=== PATIENT | male | born 1945 ===

== ENCOUNTER 2016-11-08 12:55 | Emergency (ER) | payer OTHER ==
--- NOTE | 2016-11-08 13:40 | DIAGNOSTIC IMAGING REPORT ---
PROCEDURE: CT HEAD WITHOUT CONTRAST INDICATION: WEAKNESS TECHNIQUE: Axial CT images were acquired through the head. Coronal and sagittal reformations were created. COMPARISON: Head CT 11/27/2015 FINDINGS: Sulci and ventricular system are normal. Mild white matter chronic ischemic changes. No evidence of acute intracranial process. Visualized mastoids and sinuses are clear. IMPRESSION: 1. No acute intracranial abnormality 2. Mild white matter chronic ischemic changes 3. Findings discussed with Dr. Alvarez at 01:18 p.m., [place] Standard Time All CT scans at this facility use dose modulation, iterative reconstruction, and/or weight-based dosing when appropriate to reduce radiation dose to as low as reasonably achievable.
--- NOTE | 2016-11-08 14:45 | ED NURSING NOTES ---
Clinical Report - Nurses [facility] [address] [place] [address] 11/08/2016 12:58 Patient: FRANTZ DUNN SR TRIAGE Triage time 1258. Acuity: LEVEL 2. Chief Complaint: (pt in with slurred speech and "a little wobbling"). ( FSBS- 70). LEXI COMA SCORE: Stanford Coma Scale: 14- eyes open spontaneously (4); best verbal response- disoriented (4); best motor response- obeys commands (6). --13:08 Jeanne Verdin R.N. 13:00 11/08/16. BP: 163/77. HR: 64. RR: 18. O2 saturation: 98% on room air. Temp: 98.4 F. Pain level now: 10. Additional comments: 3- right rib pain . --13:08 Jeanne Verdin R.N. Weight: 59.8 kg stated. Height/Length: 68 inches Per Patient. BMI: 20.1. --13:07 Jeanne Verdin R.N. Medications Alfuzosin HCl ER Oral. --14:55 Jeanne Verdin R.N. Allergies None. --14:55 Jeanne Verdin R.N. History Arrived by private vehicle. Historian: patient. Accompanied by spouse. Primary physician (Freddy). This started 2 weeks. ( no facial droop noted, but pt also has poor memory that states is new). --13:08 Jeanne Verdin R.N. ( has had several recent falls - 2 weeks ago fell to ground, frequently falls into furniture, or against saavedra). SOCIAL HX: Light tobacco smoker (cigarette)- less than 1/2 a pack per day. Alcohol use. (dry since ?2015 (was heavy drinker before that)). No drug use. --13:10 Jeanne Verdin R.N. PROBLEMS: Alcohol Intoxication. Syncope. Lung Disease. Prostate Cancer. --13:07 Jeanne Verdin R.N. ADDITIONAL SURGERIES: Prostatic seed implants. --13:07 Jeanne Verdin R.N. Interventions ID band on patient. To treatment room. --13:08 Jeanne Verdin R.N. PHYSICAL ASSESSMENT 12:58. Ambulatory to room. Patient gowned. GENERAL / NEURO / PSYCH: Awake. Alert. Appears in no acute distress. Lexi Coma Scale: 14- eyes open spontaneously (4); best verbal response- disoriented (4); best motor response- obeys commands (6). Slurred speech. HEENT: ( steam fitter helper equal and strong, no facial droop noted). RESPIRATORY: Respirations not labored. CVS: Capillary refill less than 2 seconds. SKIN: Skin is warm and dry. --13:13 Jeanne Verdin R.N. NURSING PROGRESS NOTES 12:58. Monitoring of patient in place. Patient gowned. Head of bed elevated. Reassurance given. Patient identifiers checked. Call light placed in reach. Side rails up. Bed placed in lowest position. Patient ready for evaluation- chart flagged. --13:08 Jeanne Verdin R.N. 13:08 11/08/2016 Started bag #1 1000 mL IV Fluids IV NS (Saline); at 1000 mL/hr over 1 hour(s) via site #1 via IV pump. IV patency established. IV site checked: no pain, redness, or swelling. IV flushed thoroughly pre- and post-medication administration. --14:26 Jeanne Verdin R.N. 13:08 11/08/16. Patient transported to CT by stretcher with tech. --13:08 Jeanne Verdin R.N. 13:13 11/08/16. Patient returned from CT by stretcher with tech. --13:14 Jeanne Verdin R.N. 13:13. LEXI COMA SCORE: Stanford Coma Scale: 15- eyes open spontaneously (4); best verbal response- oriented x 4 (5); best motor response- obeys commands (6). (correct answers now, speech seems clearer now). --13:15 Jeanne Verdin R.N. 13:16 11/08/2016 Site #1 started via IV in the right antecubital space with an 20g angiocath, with aseptic technique and good blood return; one attempt. Blood drawn: rainbow set. Labeled in the presence of the patient and sent to the lab. Saline lock flushed with 10 mL saline (done by WING Miller). --13:16 Jeanne Verdin R.N. Finger stick glucose: 70 mg/dL 13:08; performed by tech; result shown to the RN. --13:38 Kristine Nguyen EKG time: (13:23). EKG was performed by a tech and shown to the ED physician. --13:39 Kristine Nguyen 13:30 11/08/16. BP: 125/73. HR: 70. RR: 18. O2 saturation: 98% on room air. Temp: deferred. Pain level now: 3/10. Additional comments: resting quietly, watching t.v. at bedside. pt declined additional blanket . --14:23 Jeanne Verdin R.N. 14:00 11/08/16. BP: 138/66. HR: 61. RR: 16. O2 saturation: 98%. Temp: deferred. Pain level now: 3/10. Additional comments: pt declined fluids. in no distress. --14:24 Jeanne Verdin R.N. 14:00. LEXI COMA SCORE: Stanford Coma Scale: 15- eyes open spontaneously (4); best verbal response- oriented x 4 (5); best motor response- obeys commands (6). --14:24 Jeanne Verdin R.N. 14:10. Patient ID band checked for patient name and birthdate: patient confirmed. Clean catch urine collected with return of yellow-colored clear urine; sample sent to lab for urinalysis and culture. Specimen labeled in the presence of the patient (pt voided 300cc in urinal at bedside. UA sent to lab). --14:25 Jeanne Verdin R.N. 14:20 11/08/2016 IV Saline Lock Drip IV Discontinued: bag #1 infused. Total amount infused: 1000 mL (IV converted to saline lock.). --14:27 Jeanne Verdin R.N. 14:20 11/08/2016 IV Fluids IV NS Discontinued: bag #1 STOPPED upon discharge. Total amount infused: 1000 mL. --14:54 Jeanne Verdin R.N. 14:44 11/08/2016 Site #1 removed upon discharge. Bandaid applied. --14:54 Jeanne Verdin R.N. DISPOSITION / DISCHARGE 14:50. Condition at departure: unchanged and stable. No learning barriers present. Spouse verbalized understanding. Written instructions provided in Estonian. The patient was discharged home and accompanied by spouse. He left the Emergency Department ambulatory and via private vehicle. Spouse driving. LEXI COMA SCORE: Lexi Coma Scale: 15- eyes open spontaneously (4); best verbal response- oriented x 4 (5); best motor response- obeys commands (6). --14:53 Jeanne Verdin R.N. 14:50 11/08/16. BP: 130/73. HR: 61. RR: 16. O2 saturation: 98%. Temp: deferred. Pain level now: 08/09. --14:53 Jeanne Verdin R.N. Locked/Released at 11/08/2016 14:56 by Jeanne Verdin R.N.
--- NOTE | 2016-11-08 14:45 | ED ORDER SUMMARY ---
..... Patient: FRANTZ DUNN SR OrderSheet [facility] VisitID: [id number] [address] [place] [address] 71y, M Registration Date/Time: 11/08/2016 ORDER SHEET Weight: 59.8 kg (stated) Allergies: None GENERAL ORDERS: CT Head wo Cont Urgent (13:11/08/2016 HBivens A.R.N.P.) (Ack 13:11 IJurca ER Tech1) (13:16 DDean R.N.) Glass Wool Blanket Machine Feeder (Continuous) (13:11/08/2016 HBivens A.R.N.P.) (Ack 13:11 IJurca ER Tech1) (13:14 DDean R.N.) CBC w Diff Urgent (13:11/08/2016 HBivens A.R.N.P.) (Ack 13:11 IJurca ER Tech1) (13:16 DDean R.N.) CMP Urgent (13:11/08/2016 HBivens A.R.N.P.) (Ack 13:11 IJurca ER Tech1) (13:16 DDean R.N.) CPK Urgent (13:11/08/2016 HBivens A.R.N.P.) (Ack 13:11 IJurca ER Tech1) (13:16 DDean R.N.) Troponin-I Urgent (13:11/08/2016 HBivens A.R.N.P.) (Ack 13:11 IJurca ER Tech1) (13:16 DDean R.N.) PCT (Procalcitonin) Urgent (13:11/08/2016 HBivens A.R.N.P.) (Ack 13:11 IJurca ER Tech1) (13:16 DDean R.N.) CRP Urgent (13:11/08/2016 HBivens A.R.N.P.) (Ack 13:11 IJurca ER Tech1) (13:16 DDean R.N.) UA-Culture if indicated Urgent (13:11/08/2016 HBivens A.R.N.P.) (Ack 13:11 IJurca ER Tech1) (14:25 DDean R.N.) Urine Drug Screen Urgent (13:08 11/08/2016 HBivens A.R.N.P.) (Ack 13:11 IJurca ER Tech1) (14:25 DDean R.N.) TSH Urgent (13:08 11/08/2016 HBivens A.R.N.P.) (Ack 13:11 IJurca ER Tech1) (13:16 DDean R.N.) EKG - ER Stat (13:08 11/08/2016 HBivens A.R.N.P.) (Ack 13:10 RKaruga) (13:38 RKaruga) Ethyl Alcohol Urgent (13:28 11/08/2016 HBivens A.R.N.P.) (Ack 13:30 IJurca ER Tech1) (14:55 DDean R.N.) MEDICATION ORDERS: IV FLUIDS: IV Saline Lock (13:08 11/08/2016 HBivens A.R.N.P.) (Ack 13:14 DDean R.N.) (13:17 DDean R.N.) IV NS : initial bolus 1000 mL (1000 mL/hr), then none - (NOW) (13:08 11/08/2016 HBivens A.R.N.P.) (Ack 13:14 DDean R.N.) (14:26 DDean R.N.) ORDER SHEET NOTES: [Electronically signed by Jeanne Verdin R.N. (14:56 11/08/2016)] [Electronically signed by Pema Alvarez A.R.N.P. (18:55 11/08/2016)] [Electronically locked/signed by Jeanne Verdin R.N. (14:56 11/08/2016)]
--- NOTE | 2016-11-08 14:45 | ED CLINICAL REPORT ---
Clinical Report - Physicians/Mid Levels [facility] [address] [place] [address] 11/08/2016 12:58 Patient: FRANZT DUNN SR Time Seen: 1300; upon arrival, initial patient contact, initial documentation, patient care assumed. Arrived- By private vehicle. Historian- patient and family. HISTORY OF PRESENT ILLNESS Chief Complaint: WEAKNESS, DIFFICULTY WALKING and IMPAIRED SPEECH. This started about 2 - 3 weeks ago and is still present. It was gradual in onset and has been constant. The patient has had generalized weakness. No numbness, tingling, visual disturbance, impaired swallowing or recent fall. He has had difficulty with speech (slurred). He has had difficulty walking (family says he is hobbling around). (none). No dizziness, altered mental status, seizure or blackouts. Usually is alert and oriented X3 and has normal mobility. (pt says he is fine, there is nothing wrong with him, wrong with his speech, but family tells him there is). Similar symptoms previously: None. Recent medical care: Not recently seen/assessed. REVIEW OF SYSTEMS No fever, head injury, chest pain, difficulty breathing or cough. No abdominal pain, diarrhea, difficulty with urination or vomiting. All systems otherwise negative, except as recorded above. PAST HISTORY See nurses notes. ( PROBLEMS: Alcohol Intoxication. Syncope. Lung Disease. Prostate Cancer. --13:07 Jeanne Verdin, R.N. ADDITIONAL SURGERIES: Prostatic seed implants. --13:07 Jeanne Verdin, R.N.). SOCIAL HISTORY Light tobacco smoker. Alcohol use. Patient is a recovering alcoholic. No drug use. No recent travel. Is a local resident. FAMILY HISTORY Negative. ADDITIONAL NOTES The nursing notes have been reviewed with agreement regarding the chief complaint, HPI, ROS, PMH and patient medications and allergies. PHYSICAL EXAM Vital Signs: 11/08/2016 13:00 BP: 163/77. HR: 64. RR: 18. O2 saturation: 98%. Temp: 98.4 F. Pain level now: 09/06. Have been reviewed as normal and appear to be correct. Appearance: Alert. No acute distress. Head: Head atraumatic. Eyes: Pupils equal, round and reactive to light. ENT: Normal ENT inspection. Airway intact. Pharynx normal. Neck: Normal inspection. Neck supple. CVS: Normal heart rate and rhythm. Heart sounds normal. Pulses normal. Respiratory: No respiratory distress. Breath sounds normal. Abdomen: Soft and nontender. No organomegaly. Back: Normal inspection. Skin: Skin warm and dry. Normal skin color. No rash. Normal skin turgor. Extremities: Extremities exhibit normal ROM. No lower extremity edema. Neuro: Alert. Oriented X 3. Mood/affect normal. Speech normal. Cranial nerves normal (as tested). No cerebellar findings. No motor deficit. No sensory deficit. LABS, X-RAYS, AND EKG EKG: EKG time: (1323). No acute process. No acute ischemia. Normal EKG. Rate: 62. RBBB. Normal EKG. interpreted by dr zimmerman and reviewed by me. The EKG appears to be a good tracing. Interpretation time: 1324. CT Head: No acute disease. (IMPRESSION: 1. No acute intracranial abnormality 2. Mild white matter chronic ischemic changes 3. Findings discussed with Dr. Alvarez at 01:18 p.m., [place] Standard Time All CT scans at this facility use dose modulation, iterative reconstruction, and/or weight-based dosing when appropriate to reduce radiation dose to as low as reasonably achievable. Electronically Final signed by:Tramaine Hall MD 11/08/2016 1:41:14 PM). The study was interpreted by the radiologist and discussed with the radiologist. Laboratory Tests: UA-Culture if indicated: (MARQUITA: 11/08/2016 13:40) ( MsgRcvd 11/08/2016 14:12) Final results Test Result Flag Units (Reference) URINE COLOR YELLOW URINE APPEARANCE CLEAR URINE GLUCOSE NEGATIVE (NEGATIVE) URINE BILIRUBIN NEGATIVE (NEGATIVE) URINE KETONE NEGATIVE (NEGATIVE) URINE SPECIFIC GRAVITY <= 1.005 L (1.010-1.030) URINE PH 6.5 (5.0-8.0) URINE PROTEIN NEGATIVE (NEGATIVE) URINE UROBILINOGEN 0.2 EU/dL (0.2-1.0) URINE NITRITE NEGATIVE (NEGATIVE) URINE BLOOD NEGATIVE (NEGATIVE) URINE LEUK ESTERASE NEGATIVE (NEGATIVE) URINE RBC NONE SEEN rbc/hpf (0-1) URINE WBC NONE SEEN wbc/hpf (0-1) URINE EPITHELIAL CELLS NONE SEEN EPI/hpf (0-5) URINE BACTERIA NONE SEEN (NONE SEEN) URINE COMMENT CULT NOT INDICATED URINE CULTURES ARE SET-UP BASED ON THE FOLLOWING CRITERIA:POSITIVE NITRITEPOSITIVE LEUKOCYTE ESTERASEGREATER THAN 10 WHITE BLOOD CELLSMODERATE (2+) OR GREATER BACTERIA CBC w Diff: (MARQUITA: 11/08/2016 13:15) ( [facility] 11/08/2016 13:54) Final results Test Result Flag Units (Reference) WHITE BLOOD COUNT 6.4 K/uL (4.5-11.5) RED BLOOD COUNT 4.58 M/uL (4.50-5.90) HEMOGLOBIN 14.4 gm/dL (13.5-17.5) HEMATOCRIT 42.8 % (41.0-53.0) MEAN CELL VOLUME 94 fL (80-100) MEAN CORPUSCULAR HGB 31 pg (26-34) MEAN CORPUSCULAR HGB CONC 34 g/dL (31-37) RED CELL DISTRIBUTION WIDTH 14.1 % (11.6-14.8) PLATELET COUNT 167 K/uL (150-400) NEUTROPHIL % 60.0 % (50-75) LYMPH % 29.0 % (25-40) MONO % 8.6 % (3-14) EOSINOPHIL % 1.6 % (0-4) BASOPHIL % 0.8 % (0-2) Ethyl Alcohol: (MARQUITA: 11/08/2016 13:15) ( [facility] [place] 11/08/2016 14:32) Final results Test Result Flag Units (Reference) ETHYL ALCOHOL <3 L mg/dL (3-10) Urine Drug Screen: (MARQUITA: 11/08/2016 13:40) ( [facility] [place] 11/08/2016 14:19) Final results Test Result Flag Units (Reference) AMPHETAMINE/METHAMPHETAMINE NEGATIVE (NEGATIVE) BARBITURATE NEGATIVE (NEGATIVE) BENZODIAZEPINE NEGATIVE (NEGATIVE) CANNABINOID NEGATIVE (NEGATIVE) COCAINE NEGATIVE (NEGATIVE) ECSTASY NEGATIVE (NEGATIVE) METHADONE NEGATIVE (NEGATIVE) OPIATE NEGATIVE (NEGATIVE) The urine drug screen is a qualitative screening test fordrug overdose and abuse. All screen results should beconsidered as presumptive.Drugs screened for are as follows:BenzodiazepinesCocaineAmphetamines/MetamphetaminesTHC (Tetrahydrocannabinol)OpiatesBarbituratesEcstasyMethadonePositive results are unconfirmed. For confirmation, notifythe lab for the specimen to be sent to the reference lab.All confirmations must be performed by a differentmethodology.The ingestion of natural herbal and plant productscontaining Ephedra/Ephedra metabolites can produce in urineone or more substances capable of cross reacting withamphetamine/methamphetamine immunoassays. These testsprovide a preliminary result only. A more specificalternative chemical method must be used to obtain aconfirmed analytical result. [id number]: (MARQUITA: 11/08/2016 13:15) ( MsgRcvd 11/08/2016 14:07) Final results Test Result Flag Units (Reference) PROCALCITONIN <0.5 ng/mL (0-0.5) PCT Concentration: Interpretation : Risk/option for action PCT <=0.5 ng/mL : Systemic : Low risk forinfection(sepsis): progression to severeis not likely. : systemic infection.Local bacterial : CAUTION-PCT levelsinfection is : below 0.5 ng/mL do notpossible. : exclude an infection,because localizedinfections (withoutsystemic signs) may beassociated with suchlow levels. If PCT ismeasured very earlyafter a bacterialchallenge (usually <6hours), these valuesmay still be low. Inthis case PCT shouldbe re-assessed 6-24hours later. PCT >0.5 and : Systemic infection: Moderate risk for<= 2 ng/mL : (sepsis) is : progression to severepossible, but : systemic infection.other conditions : The patient should beare known to : closely monitoredelevate PCT. : both clinically andby re-assessing PCTwithin 6-24 hours. PCT > 2 ng/mL : Systemic infection: High risk for(sepsis) is likely: progression to severeunless other : systemic infection.causes are known. : PCT >= 10 ng/mL : Important systemic: High likelihood ofinflammatory : severe sepsis orresponse, almost : septic shock.exclusively due to:severe bacterial :sepsis or septic :shock. : CMP: (MARQUITA: 11/08/2016 13:15) ( MsgRcvd 11/08/2016 14:31) Final results Test Result Flag Units (Reference) GLUCOSE 93 mg/dL (70-110) BUN 14 mg/dL (7-18) CREATININE 0.8 mg/dL (0.6-1.3) Estimated GFR >60 mL/min Estimated GFR- >60 mL/min Note: Persistent reduction over 3 months in eGFR<60 mL/min/1.73 m2 defines CKD. Patients with eGFR values>=60 mL/min/1.73 m2 may also have CKD if evidence ofpersistent proteinuria. Additional information may be foundat www.kidney.org. SODIUM 140 mmol/L (136-145) POTASSIUM 4.7 mmol/L (3.5-5.1) CHLORIDE 104 mmol/L (98-107) CARBON DIOXIDE 26 mmol/L (21-32) CALCIUM 8.5 mg/dL (8.5-10.1) TOTAL PROTEIN 6.9 g/dL (6.4-8.2) ALBUMIN 3.6 g/dL (3.3-5.0) BILIRUBIN, TOTAL 0.5 mg/dL (0.0-1.0) ALKALINE PHOSPHATASE 70 U/L (46-116) AST (SGOT) 19 U/L (15-37) ALT (SGPT) 28 U/L (12-78) CPK 93 U/L (24-260) TROPONIN I <0.05 ng/mL (0.00-1.5) TROPONIN REFERENCE RANGE:<0.1 NEGATIVE0.1-1.5 INDETERMINANT>1.5 POSITIVE THYROID STIMULATING HORMONE 2.552 uIU/mL (0.30-3.74) C-REACTIVE PROTEIN 0.2 mg/dL (0.0-0.9) . PROGRESS AND PROCEDURES Course of Care: 1425. pt and family updated with ct, ekg and current lab results, still awaiting some blood work. 11/08/2016 14:00 BP: 138/66. HR: 61. RR: 16. O2 saturation: 98%. Pain level now: 3/10. Vital Signs: have been reviewed as normal and appear to be correct. Patient and family counseled in person regarding the patient's stable condition, test results and diagnosis. 14:43. Differential Diagnosis: I considered ischemic stroke, subdural hematoma, subarachnoid hemorrhage, arteriovenous malformation, aneurysm, brain abscess, brain tumor, tumor, toxic etiology, endocrine etiology, hypoglycemia and hyperglycemia as a possible cause of weakness in this patient. This is a partial list of diagnoses considered. Above considerations are based on history, physical exam, reassessment, laboratory data, EKG and other information. Differential diagnosis was discussed with patient. Disposition: Discharged home in good and improved condition (14:45). Condition: good and stable. CLINICAL IMPRESSION Acute generalized weakness. INSTRUCTIONS Warnings: GENERAL WARNINGS: Return or contact your physician immediately if your condition worsens or changes unexpectedly, if not improving as expected, or if other problems arise. Specifically return if problem worsens. Follow-up: Follow up with your doctor in about three days even if well. Call for an appointment. Summary of care provided to patient and family. Understanding of the discharge instructions verbalized by patient. (Electronically signed by Pema Alvarez A.R.N.P. 11/08/2016 18:55)
--- NOTE | 2016-11-08 14:45 | ED ORDER SUMMARY ---
..... Patient: FRANTZ DUNN SR OrderSheet [facility] VisitID: [id number] [address] [place] [address] 71y, M Registration Date/Time: 11/08/2016 ORDER SHEET Weight: 59.8 kg (stated) Allergies: None GENERAL ORDERS: CT Head wo Cont Urgent (13:11/08/2016 HBivens A.R.N.P.) (Ack 13:11 IJurca ER Tech1) (13:16 DDean R.N.) Labor Relations Officer (Continuous) (13:11/08/2016 HBivens A.R.N.P.) (Ack 13:11 IJurca ER Tech1) (13:14 DDean R.N.) CBC w Diff Urgent (13:11/08/2016 HBivens A.R.N.P.) (Ack 13:11 IJurca ER Tech1) (13:16 DDean R.N.) CMP Urgent (13:11/08/2016 HBivens A.R.N.P.) (Ack 13:11 IJurca ER Tech1) (13:16 DDean R.N.) CPK Urgent (13:11/08/2016 HBivens A.R.N.P.) (Ack 13:11 IJurca ER Tech1) (13:16 DDean R.N.) Troponin-I Urgent (13:11/08/2016 HBivens A.R.N.P.) (Ack 13:11 IJurca ER Tech1) (13:16 DDean R.N.) PCT (Procalcitonin) Urgent (13:11/08/2016 HBivens A.R.N.P.) (Ack 13:11 IJurca ER Tech1) (13:16 DDean R.N.) CRP Urgent (13:11/08/2016 HBivens A.R.N.P.) (Ack 13:11 IJurca ER Tech1) (13:16 DDean R.N.) UA-Culture if indicated Urgent (13:11/08/2016 HBivens A.R.N.P.) (Ack 13:11 IJurca ER Tech1) (14:25 DDean R.N.) Urine Drug Screen Urgent (13:08 11/08/2016 HBivens A.R.N.P.) (Ack 13:11 IJurca ER Tech1) (14:25 DDean R.N.) TSH Urgent (13:08 11/08/2016 HBivens A.R.N.P.) (Ack 13:11 IJurca ER Tech1) (13:16 DDean R.N.) EKG - ER Stat (13:08 11/08/2016 HBivens A.R.N.P.) (Ack 13:10 RKaruga) (13:38 RKaruga) Ethyl Alcohol Urgent (13:28 11/08/2016 HBivens A.R.N.P.) (Ack 13:30 IJurca ER Tech1) (14:55 DDean R.N.) MEDICATION ORDERS: IV FLUIDS: IV Saline Lock (13:08 11/08/2016 HBivens A.R.N.P.) (Ack 13:14 DDean R.N.) (13:17 DDean R.N.) IV NS : initial bolus 1000 mL (1000 mL/hr), then none - (NOW) (13:08 11/08/2016 HBivens A.R.N.P.) (Ack 13:14 DDean R.N.) (14:26 DDean R.N.) ORDER SHEET NOTES: [Electronically signed by Jeanne Verdin R.N. (14:56 11/08/2016)] [Electronically signed by Pema Alvarez A.R.N.P. (18:55 11/08/2016)] [Electronically locked/signed by Jeanne Verdin R.N. (14:56 11/08/2016)]
--- NOTE | 2016-11-08 18:55 | ED MAR SUMMARY ---
..... Medication Administration Record [facility] [address] [place] [address] Patient: FRANTZ DUNN Visit ID: [id number] 71y, M Weight: 59.8 kg Height/Length: 68 in BMI: 20.1 ALLERGIES: None Start 13:08 11/08/2016 Jeanne Verdin R.N., Stop 14:20 11/08/2016 Jeanne Verdin R.N. Medication Administered: IV NS (SALINE), Dose: IV Fluids over 1 hour(s), Rate: 1000 mL/hr, Dispensed: 1000 mL bag, Site: #1. Medication Ordered: IV NS : initial bolus 1000 mL (1000 mL/hr), then none - (NOW).
--- NOTE | 2016-11-08 18:55 | ED MAR SUMMARY ---
..... Medication Administration Record [facility] [address] [place] [address] Patient: FRANTZ DUNN Visit ID: [id number] 71y, M Weight: 59.8 kg Height/Length: 68 in BMI: 20.1 ALLERGIES: None Start 13:08 11/08/2016 Jeanne Verdin R.N., Stop 14:20 11/08/2016 Jeanne Verdin R.N. Medication Administered: IV NS (SALINE), Dose: IV Fluids over 1 hour(s), Rate: 1000 mL/hr, Dispensed: 1000 mL bag, Site: #1. Medication Ordered: IV NS : initial bolus 1000 mL (1000 mL/hr), then none - (NOW).
--- NOTE | 2016-11-08 18:55 | ED DISCHARGE INSTRUCTIONS ---
Patient: FRANTZ DUNN SR General Instructions [facility] VisitID: [id number] [address] [place] [address] 71y, M Registration Date/Time: 11/08/2016 Acute generalized weakness. INSTRUCTIONS Warnings: GENERAL WARNINGS: Return or contact your physician immediately if your condition worsens or changes unexpectedly, if not improving as expected, or if other problems arise. Specifically return if problem worsens. Follow-up: Follow up with your doctor in about three days even if well. Call for an appointment. Summary of care provided to patient and family. Understanding of the discharge instructions verbalized by patient. ADDITIONAL INFORMATION Weakness [Uncertain Cause] Based on your exam today, the exact cause of your weakness is not certain. However, your weakness does not seem to be a sign of a serious illness at this time. Sometimes the signs of a serious illness take more time to appear. Therefore, please watch for the warning signs listed below. Home Care: 1) Rest at home today. Do not over-exert yourself. 2) Take your medicine as prescribed. 3) For the next few days, drink extra fluids (unless your doctor wants you to restrict fluids for other reasons). Do not skip meals. Follow Up with your doctor or as advised if you are not starting to feel better within TWO days. Get Prompt Medical Attention if any of the following occur: Worsening of your symptoms Chest, arm, neck, jaw or upper back pain Dizziness or fainting Trouble breathing Unable to eat or drink normal amounts Nausea, frequent vomiting, frequent diarrhea Abdominal pain Numbness or weakness of the face, one arm or one leg Slurred speech, confusion, trouble speaking, walking or seeing Blood in vomit or stool (black or red color) Fever of 100.4 F (38 C) or higher, or as directed by your healthcare provider You have been given the following additional information: Weakness, Unk Cause (Electronically signed by Pema Alvarez A.R.NBerna 11/08/2016 18:55)
--- NOTE | 2016-11-08 18:55 | ED DISCHARGE INSTRUCTIONS ---
Patient: FRANTZ DUNN SR General Instructions [facility] VisitID: [id number] [address] [place] [address] 71y, M Registration Date/Time: 11/08/2016 Acute generalized weakness. INSTRUCTIONS Warnings: GENERAL WARNINGS: Return or contact your physician immediately if your condition worsens or changes unexpectedly, if not improving as expected, or if other problems arise. Specifically return if problem worsens. Follow-up: Follow up with your doctor in about three days even if well. Call for an appointment. Summary of care provided to patient and family. Understanding of the discharge instructions verbalized by patient. ADDITIONAL INFORMATION Weakness [Uncertain Cause] Based on your exam today, the exact cause of your weakness is not certain. However, your weakness does not seem to be a sign of a serious illness at this time. Sometimes the signs of a serious illness take more time to appear. Therefore, please watch for the warning signs listed below. Home Care: 1) Rest at home today. Do not over-exert yourself. 2) Take your medicine as prescribed. 3) For the next few days, drink extra fluids (unless your doctor wants you to restrict fluids for other reasons). Do not skip meals. Follow Up with your doctor or as advised if you are not starting to feel better within TWO days. Get Prompt Medical Attention if any of the following occur: Worsening of your symptoms Chest, arm, neck, jaw or upper back pain Dizziness or fainting Trouble breathing Unable to eat or drink normal amounts Nausea, frequent vomiting, frequent diarrhea Abdominal pain Numbness or weakness of the face, one arm or one leg Slurred speech, confusion, trouble speaking, walking or seeing Blood in vomit or stool (black or red color) Fever of 100.4 F (38 C) or higher, or as directed by your healthcare provider You have been given the following additional information: Weakness, Unk Cause (Electronically signed by Pema Alvarez A.R.NBerna 11/08/2016 18:55)
--- NOTE | 2016-11-08 18:55 | ED MED RECONCILIATION SUMMARY ---
Patient: FRANTZ DUNN SR Medication Reconciliation Report [facility] VisitID: [id number] [address] [place] [address] 71y, M Registration Date/Time: 11/08/2016 Weight: 59.8 kg Height/Length: 68 in. BMI: 20.1 ALLERGIES: None The patient's Home Medications are listed below: THE FOLLOWING MEDICATIONS NEED TO BE RECONCILED: Alfuzosin HCl ER Oral The source(s) of the original Home Medication information: Not obtained. The following Medications were given to the patient in the Emergency Department: IV NS IV Fluids bolus 0, then 1000 mL/hr, administered: 11/08/2016 1:08:00 PM The following Medications were prescribed to the patient: None.
--- NOTE | 2016-11-08 18:55 | ED MED RECONCILIATION SUMMARY ---
Patient: FRANTZ DUNN SR Medication Reconciliation Report [facility] VisitID: [id number] [address] [place] [address] 71y, M Registration Date/Time: 11/08/2016 Weight: 59.8 kg Height/Length: 68 in. BMI: 20.1 ALLERGIES: None The patient's Home Medications are listed below: THE FOLLOWING MEDICATIONS NEED TO BE RECONCILED: Alfuzosin HCl ER Oral The source(s) of the original Home Medication information: Not obtained. The following Medications were given to the patient in the Emergency Department: IV NS IV Fluids bolus 0, then 1000 mL/hr, administered: 11/08/2016 1:08:00 PM The following Medications were prescribed to the patient: None.
== END 2016-11-08 14:50 | disposition home or self-care (01) ==
LOC: ED SRH 12:55
DX: R53.1 Weakness (principal); F17.210 Nicotine dependence, cigarettes, uncomplicated; Z85.46 Personal history of malignant neoplasm of prostate
CPT/HCPCS: 90004; 90098; 90100; 90616; 91585; 92010; 92610; 92760; 92761; 92762; 92763; 92764; 92765; 92766; 92767; 93004; 93140; 95059

== ENCOUNTER 2017-01-01 09:21 | Outpatient (CLI) | payer OTHER ==
--- NOTE | 2017-01-01 11:35 | DIAGNOSTIC IMAGING REPORT ---
PROCEDURE: CT ABD/PELVIS WITH CONTRAST CLINICAL INDICATION: ANOREXIA TECHNIQUE: 125 ml of Isovue 300 were injected intravenously and axial images were obtained of the entire abdomen and pelvis with sagittal and coronal reformations. COMPARISON: None. FINDINGS: ABDOMEN: Severe emphysema. Normal heart size. Four hypoenhancing liver lesions, largest in the right lobe 5 mm, indeterminate. A 4.5 cm heterogeneous right adrenal mass. The gallbladder, pancreas, spleen and spleen are normal. Small bilateral renal cysts. Mild atherosclerosis of the aorta. Nonspecific bowel gas pattern. PELVIS: Normal appendix. Moderate sigmoid diverticulosis. Prostate brachytherapy seeds. 5.2 cm left bladder diverticulum. Small fat-containing left inguinal hernia. Severe L5-S1 disc space narrowing with grade 1 retrolisthesis. IMPRESSION: 1. Severe emphysema 2. 4.5 cm heterogeneous right adrenal mass, possibly metastasis. Recommend CT chest. 3. Four indeterminate hepatic lesions. Correlate with LFTs. Recommend follow-up. 4. Moderate sigmoid diverticulosis 5. Prostate brachytherapy seeds 6. 5.2 cm left bladder diverticulum 7. Results discussed with Dr. Hayes All CT scans at this facility use dose modulation, iterative reconstruction, and/or weight-based dosing when appropriate to reduce radiation dose to as low as reasonably achievable.
== END 2017-01-01 23:00 ==
LOC: CT SRH 09:21
DX: J43.9 Emphysema, unspecified (principal); E27.9 Disorder of adrenal gland, unspecified; K76.9 Liver disease, unspecified; N32.3 Diverticulum of bladder; K57.30 Diverticulosis of large intestine without perforation or abscess without bleeding

== ENCOUNTER 2017-01-02 09:26 | Outpatient (CLI) | payer OTHER ==
--- NOTE | 2017-01-02 10:26 | DIAGNOSTIC IMAGING REPORT ---
PROCEDURE: CT THORAX WITHOUT CONTRAST INDICATION: ANOREXIA TECHNIQUE: Noncontrast axial images were obtained of the chest with coronal and sagittal reformations. COMPARISON: Chest x-ray 11/27/[address] abdomen/pelvis 01/01/2017. FINDINGS: Severe emphysema with left upper lobe scar. Normal airways. Right paratracheal lymph nodes, largest 1.5 cm. No effusion. Mild atherosclerosis. Coronary atherosclerosis. Normal heart size. No pericardial effusion. 4.5 cm right adrenal mass. Stable low density hepatic lesions, largest 5 mm. Mild degenerative changes of the spine. IMPRESSION: 1. Severe emphysema with small left upper lobe scar 2. Enlarged right paratracheal lymph node 3. 4.5 cm right adrenal mass, primary neoplasm versus metastasis.
== END 2017-01-02 23:00 | disposition home or self-care (01) ==
LOC: CT SRH 09:26
DX: R63.0 Anorexia (principal); J43.9 Emphysema, unspecified; R29.898 Other symptoms and signs involving the musculoskeletal system; F17.200 Nicotine dependence, unspecified, uncomplicated; D07.5 Carcinoma in situ of prostate; R59.9 Enlarged lymph nodes, unspecified; E27.9 Disorder of adrenal gland, unspecified

== ENCOUNTER 2017-01-09 09:30 | Outpatient (CLI) | payer OTHER ==
--- NOTE | 2017-01-09 12:55 | DIAGNOSTIC IMAGING REPORT ---
PROCEDURE: CT THORAX WITH CONTRAST INDICATION: ADRENAL MASS,RT; ANORXIA TECHNIQUE: 125 ml of Isovue 300 was injected intravenously and axial images were obtained of the chest with coronal and sagittal reformations. COMPARISON: 01/02/2017 FINDINGS: There is a 1.5 x 1.5 cm enhancing right paratracheal lymph node, and a smaller right periaortic lymph node measuring 11 mm. Small superior right hilar nodule/lymph node and 2.0 cm right mid hilar lymph node. No left hilar adenopathy or significant AP window lymph nodes. The thyroid gland is normal. Thoracic aorta is normal caliber with mild atherosclerosis. The great vessels demonstrates normal branching pattern. The central pulmonary arteries are normal caliber. Heart size is normal. Mild anterior pericardial thickening. No pericardial effusion. The esophagus is normal in caliber without hiatal hernia. The airway is patent and branches normally. Severe emphysematous changes. Small anterior left upper lobe scar without enhancing solid component. No suspicious nodules or masses in the pulmonary parenchyma. No pleural effusions or pneumothorax. Osseous structures are intact. The images in the upper abdomen demonstrate a heterogeneous 4.5 cm right adrenal mass. Numerous tiny hypodensities throughout the liver. IMPRESSION: 1. Right hilar and right mediastinal lymph nodes, largest in the right hilar region, mildly suspicious for a neoplastic process but could also be reactive in the setting of severe emphysema. A 1.5 cm right paratracheal lymph node may be the most accessible for tissue acquisition via mediastinoscopy. 2. 4.5 cm right adrenal mass. 3. Severe emphysema. 4. Scattered tiny hepatic hypodensities too small to accurately characterize. 5. Preliminary results discussed with Dr. Hayes.
--- NOTE | 2017-01-09 18:56 | DIAGNOSTIC IMAGING REPORT ---
PROCEDURE: CT ABD/RETROPERITONEAL BIOPSY INDICATION: RT ADRENAL MASS TECHNIQUE: Written informed consent was obtained from the patient prior to the procedure. Risks discussed included but were not limited to bleeding, infection, injury to adjacent structures, pain, pneumothorax, nondiagnostic sample and allergic reaction. It was agreed to proceed. Right decubitus position on the CT table. Preliminary CT imaging demonstrated a 4.9 cm round soft tissue mass associated with the right adrenal gland. An appropriate skin entry site was chosen and marked. The skin was prepped and draped in the usual sterile fashion. Skin and overlying musculature was anesthetized thoroughly with 1% lidocaine. Under intermittent CT guidance, a 19 gauge introducer needle was directed into the right adrenal mass. Through this, four core biopsy samples using a 20-gauge coaxial achieve biopsy device were obtained and placed into formalin. Samples were taken to the lab. CT images were acquired documenting the introducer needle in position within the mass. Sample adequacy was assessed. The needle was removed, hemostasis was achieved, the skin was cleansed, and a sterile bandage was applied. The patient was helped off the table. The patient left the radiology department in stable condition with standard post procedure instructions. The patient tolerated the procedure well and there were no immediate complications. COMPARISON: CT abdomen pelvis 01/01/[address] thorax 01/02/2017 FINDINGS: Adequate needle position within the 4.9 cm solid right adrenal mass. IMPRESSION: 1. Successful CT-guided biopsy of right adrenal mass. 2. Pathology is pending.
== END 2017-01-09 23:00 ==
LOC: CT SRH 09:30
PROC: 0GB33ZX Excision of Right Adrenal Gland, Percutaneous Approach, Diagnostic (ICD-10-PCS; principal; 2017-01-09)
DX: E27.8 Other specified disorders of adrenal gland (principal); R63.0 Anorexia; J43.9 Emphysema, unspecified
CPT/HCPCS: 82445; 82585; 90074; 90100; 94001; 94060; 95059